=== PATIENT | male | born 1975 | race African-American/Black ===

== ENCOUNTER 2016-12-25 00:02 | Emergency (ER) | payer MEDICAID ==
[~2016-12-25] VITALS: Ht 170.2 cm; Wt 72.0 kg
[2016-12-25] MEDS ORDERED: LORAZEPAM 2MG/ML CPJ IM PRN (07:00)
[2016-12-25] MEDS ORDERED: OLANZAPINE 10 MG/VIAL IM ONE (07:30)
[2016-12-25 11:49] VITALS: BP 128/74
== END 2016-12-25 12:04 | disposition home or self-care (01) ==
LOC: ER 00:38
DX: F15.10 Other stimulant abuse, uncomplicated (principal); E78.00 Pure hypercholesterolemia, unspecified; F12.10 Cannabis abuse, uncomplicated
CPT/HCPCS: 96372; 99283; J3490; Z7610